=== PATIENT | male | born 1950 | race Caucasian/White ===

== ENCOUNTER → 2018-02-13 | Outpatient (CLI) | payer OTHER ==
[~2018-02-13] MED LIST: K-DUR 20 MEQ T20 MEQ PO; LISINOPRIL10 MG PO; NOHOMEMEDICATIONS; TORSEMIDE20 MG PO
[2018-02-13 13:48] LABS: CALCIUM 9.3 mg/dL (8.5-10.1); CREATININE 1.1 mg/dL (0.6-1.3); POTASSIUM 4.1 mmol/L (3.5-5.1)
--- NOTE | 2018-02-13 16:39 | 2DMMODE ---
[place] [address] 2 D/M-MODE ECHOCARDIOGRAM Name: RACHEL GONZALEZ Room: [facility]#: [id number] Admission: 02/13/18 Attend Phys: Tyler Joiner, Discharge: Date of : 50 Date of Service: 02/13/18 1639 Report #: [id number] THIS REPORT FOR: //name// APPROVED REPORT Study performed: 02/13/2018 14:24:57 EXAM: Comprehensive 2D, Doppler, and color-flow Echocardiogram Status: routine BSA: 2.62 HR: 84 bpm BP: 116/80 mmHg Other Information Study Quality: Fair Indications Hypertension/HDD 2D Dimensions IVSd: 14.35 (7-11mm) LVOT Diam: 22.71 (18-24mm) LVDd: 50.94 mm PWd: 12.69 (7-11mm) Ascending Ao: 34.00 (22-36mm) LVDs: 26.93 (25-40mm) Aortic Root: 30.99 mm Volumes Left Atrial Volume (Systole) LA ESV Index: 15.50 mL/m2 Aortic Valve AoV Peak Brandon.: 1.25 m/s AO Peak Gr.: 6.22 mmHg LVOT Max P.90 mmHg AO Mean Gr.: 3.59 mmHg LVOT Mean P.47 mmHg LVOT Max V: 1.11 m/s AO V2 VTI: 23.68 cm LVOT Mean V: 0.72 m/s BRGIID (VTI): 4.17 cm2 LVOT V1 VTI: 24.37 cm Mitral Valve E/A Ratio: 0.81 MV Decel. Time: 194.76 ms MV E Max Brandon.: 0.70 m/s MV PHT: 56.48 ms MVA (PHT): 3.90 [place]2 [place] [address] 2 D/M-MODE ECHOCARDIOGRAM Name: RACHEL GONZALEZ Room: [facility]#: [id number] Admission: 02/13/18 Attend Phys: Tyler Joiner, Discharge: Date of : 50 Date of Service: 02/13/18 1639 Report #: [id number] TDI E/Lateral E': 7.00 E/Medial E': 10.00 Medial E' Brandon.: 0.07 m/s Lateral E' Brandon.: 0.10 m/s Pulmonary Valve PV Peak Brandon.: 1.13 m/s PV Peak Gr.: 5.09 mmHg Tricuspid Valve RAP Estimate: 5.00 mmHg TR Peak Gr.: 27.62 mmHg RVSP: 32.62 mmHg PA Pressure: 32.62 mmHg Left Ventricle The left ventricle is normal size. There is normal LV segmental wall motion. Mild concentric left ventricular hypertrophy. Left ventricular systolic function is normal. The left ventricular ejection fraction is within the normal range. LVEF is 55-60%. Grade I - abnormal relaxation pattern. Right Ventricle The right ventricle is normal size. The right ventricular systolic function is normal. Atria The left atrium size is normal. The right atrium size is normal. Aortic Valve The aortic valve is normal in structure. No aortic regurgitation is present. There is no aortic valvular stenosis. Mitral Valve The mitral valve is normal in structure. There is no mitral valve regurgitation noted. No evidence of mitral valve stenosis. Tricuspid Valve The tricuspid valve is normal in structure. Mild tricuspid regurgitation. Pulmonic Valve Pulmonic valve is not well visualized. There is no pulmonic valvular regurgitation[place] [address] 2 D/M-MODE ECHOCARDIOGRAM Name: RACHEL GONZALEZ Room: [facility]#: [id number] Admission: 02/13/18 Attend Phys: Tyler Joiner, Discharge: Date of : 50 Date of Service: 02/13/18 1639 Report #: [id number] The aortic root is normal in size. IVC is not well visualized. Pericardium There is no pericardial effusion. <Conclusion> LVEF is 55-60%. Mild concentric left ventricular hypertrophy. <ELECTRONICALLY SIGNED> By: Anish Solano MD, FAC 02/13/18 [id number] Anish Solano MD, FAC /INF
== END ==
LOC: M.CRD 13:21
PROVIDERS: Internal Medicine Cardiovascular Disease
DX: I10 Essential (primary) hypertension (principal); I51.7 Cardiomegaly